=== PATIENT | male | born 1995 | race Caucasian/White ===

== ENCOUNTER 2020-04-29 10:57 | Emergency (ER) | payer OTHER ==
[2020-04-29] MEDS ORDERED: Diphtheria,Pertussis(Acell),Tetanus Vaccine 0.5 ML Syringe IM ONE (11:16)
[2020-04-29] MEDS ORDERED: Lidocaine 1% 20 ML MDV INJECT ONE (11:25)
[2020-04-29] MEDS ORDERED: Bacitracin/Neomycin/Polymyxin B Oint 0.9 GM U/D Packet TOP ONE (11:48)
[2020-04-29] MEDS ORDERED: cefTRIAXone 2 GM Vial IVPUSH ONE (11:49)
--- NOTE | 2020-04-29 11:51 | EDM.PDOC ---
ED HPI GENERAL MEDICAL PROBLEM - General Chief Complaint: General Stated Complaint: L) melchor laceration Time Seen by Provider: 04/29/20 11:05 Source of Information: Reports: Patient History Limitations: Reports: No Limitations - History of Present Illness INITIAL COMMENTS - FREE TEXT/NARRATIVE: Patient to the emergency department where he advises he was loading a boat last night and sustained a laceration to the left lower leg from the boat trailer. The patient vies initially he did not notice that he had this injury until he was going home. The patient denies any numbness or tingling denies any other symptoms his tetanus shot is not up-to-date and this will be updated in the emergency department Duration: Day(s): (Last night) Location: Reports: Lower Extremity, Left Quality: Reports: Ache Severity: Mild Improves with: Reports: None Worsens with: Reports: None Context: Reports: Other (Cut on a boat trailer) Associated Symptoms: Reports: No Other Symptoms. 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) Left Leg Pain Score (Numeric/FACES): 4 - Related Data Allergies Allergy/AdvReac Type Severity Reaction Status Date / Time clarithromycin [From Biaxin] Allergy Rash Verified 04/24/18 17:08 Home Meds: Home Meds cephALEXin [Keflex] 500 mg PO QID 10 Days #40 cap 04/29/20 [Rx] Past Medical History HEENT History: Reports: None - Past Surgical History HEENT Surgical History: Reports: Tonsillectomy Social & Family History - Family History Family Medical History: Noncontributory - Tobacco Use Smoking Status *Q: Never Smoker Second Hand Smoke Exposure: No - Caffeine Use Caffeine Use: Reports: None - Recreational Drug Use Recreational Drug Use: No ED ROS GENERAL - Review of Systems Review Of Systems: See Below Constitutional: Reports: No Symptoms. Denies: Fever HEENT: Reports: No Symptoms Respiratory: Reports: No Symptoms Cardiovascular: Reports: No Symptoms GI/Abdominal: Reports: No Symptoms. Denies: Nausea, Vomiting Musculoskeletal: Denies: Neck Pain, Back Pain, Joint Pain, Muscle Pain Skin: Reports: Wound Neurological: Reports: No Symptoms. Denies: Numbness, Tingling, Weakness Psychiatric: Reports: No Symptoms ED EXAM, GENERAL - Physical Exam Exam: See Below Exam Limited By: No Limitations General Appearance: Alert, WD/WN, No Apparent Distress Ears: Normal External Exam Nose: Normal Inspection Throat/Mouth: Normal Inspection, Normal Oropharynx, Normal Voice, No Airway Compromise Head: Atraumatic, Normocephalic Neck: Normal Inspection, Supple, Non-Tender, Full Range of Motion Respiratory/Chest: No Respiratory Distress, Lungs Clear, Normal Breath Sounds, Chest Non-Tender Cardiovascular: Normal Peripheral Pulses, Regular Rate, Rhythm, No Murmur GI/Abdominal: Soft Back Exam: Normal Inspection, Full Range of Motion Extremities: Normal Range of Motion, Normal Capillary Refill. No: Non-Tender Neurological: Alert, Oriented, Normal Cognition, Normal Gait, No Motor/Sensory Deficits Psychiatric: Normal Affect, Normal Mood Skin Exam: Warm, Dry, No Rash, Other (3cm laceration to the right lower extremity just above the ankle area). No: Intact ED GENERAL MEDICAL PROCEDURES - Laceration/Wound Repair Left Lower Anterior Leg Lac/wound length in cm: 3 Appearance: Subcutaneous Distal NVT: Neuro & Vascular Intact Anesthetic Type: Local Local Anesthesia - Lidocaine (Xylocaine): 1% Plain Local Anesthetic Volume: Other (7) Skin Prep: Saline, Sterile Drape Exploration/Debridement/Repair: Wound Explored, In a Bloodless Field, Explored to Base, Extensive Debridement Closed with: Sutures Suture Size: 4-0 # of Sutures: 3 Suture Type: Nylon Suture Size: 4-0 # of Sutures: 2 Repaired with: Vicryl Complication Description: none Progress/Comments: The patient was advised the risk and benefits of closing this wound as the injury happened yesterday, however, as the wound is large and gaping I advised him that the wound needs to be extensively cleaned and irrigated and then loosely approximated. I did advise despite the best wound care and cleaning that is been done the risk of infection is still significant. I would also advised him that he will be given medication which is an antibiotic to help prevent this from happening as well as he will be placed on a prescription of antibiotics for 10 days. He agrees with treatment plan. The wound was cleaned and irrigated with normal saline to bloodless field no foreign body. Course - Vital Signs Text/Narrative:: The patient was evaluated emergency department the wound was closed see the closure note for details. The patient's tetanus shot was updated and the patient was given Rocephin 2 g IV. It was again stressed the need to closely monitor this wound as it has significant risk of infection despite the best cleaning and treatment plan the patient understands and agrees to monitor closely. He is to follow-up in 2 days for recheck and he was advised sutures can probably come out in 10 to 14 days. He was also cautioned on taking care of the wound as this part of the body is a stress part of that can cause the sutures to break. He verbalized understanding. The patient's blood pressure is elevated and his vital signs were really taken see the results for details. The patient is also advised follow-up with his PCP for further evaluation and treatment Last Recorded V/S: Last Vital Signs Temp 36.1 C 04/29/20 11:07 Pulse 124 H 04/29/20 11:07 Resp 18 04/29/20 11:07 BP 164/63 H 04/29/20 11:07 Pulse Ox 98 04/29/20 11:07 - Orders/Labs/Meds Orders: Active Orders 24 hr Category Date Time Status Vaccines to be Administered [RC] PER UNIT ROUTINE Care 04/29/20 11:17 Active Meds: Medications Discontinued Medications Generic Name Dose Route Start Last Admin Trade Name Freq PRN Reason Stop Dose Admin Ceftriaxone Sodium 2 gm 04/29/20 11:49 04/29/20 11:56 Rocephin IVPUSH 04/29/20 11:50 2 gm ONETIME ONE Administration Diphtheria/Tetanus/Acell Pertussis 0.5 ml 04/29/20 11:16 04/29/20 11:20 Adacel IM 04/29/20 11:17 0.5 ml .ONCE ONE Administration Lidocaine HCl 20 ml 04/29/20 11:25 04/29/20 11:28 Xylocaine 1% INJECT 04/29/20 11:26 20 ml ONETIME ONE Administration Neomycin/Polymyxin/Bacitracin 1 each 04/29/20 11:48 04/29/20 11:56 Triple Antibiotic Oint TOP 04/29/20 11:49 1 each ONETIME ONE Administration Departure - Departure Time of Disposition: 11:49 Disposition: Home, Self-Care 01 Condition: Good Clinical Impression: Laceration of left lower leg - Discharge Information *PRESCRIPTION DRUG MONITORING PROGRAM REVIEWED*: Not Applicable *COPY OF PRESCRIPTION DRUG MONITORING REPORT IN PATIENT GERONIMO: Not Applicable Prescriptions: cephALEXin [Keflex] 500 mg PO QID 10 Days #40 cap Instructions: Laceration Care, Adult, [id number], Sutures, Reese, or Adhesive Wound Closure, [id number] Referrals: Alli Rodrigez PA-C [Primary Care Provider] - Forms: ED Department Discharge Additional Instructions: Keep the wound clean and dry Apply thin coating Neosporin 3 times a day Recheck the wound in 2 days with your family doctor Return to the emergency department sooner if worse or any problems Alternate Tylenol and or Motrin as needed for any pain Sepsis Event Note (ED) - Evaluation Sepsis Screening Result: No Definite Risk - Focused Exam Vital Signs: Vital Signs Temp Pulse Resp BP Pulse Ox 04/29/20 11:07 36.1 C 124 H 18 164/63 H 98 - Problem List & Annotations (1) Laceration of left lower leg SNOMED Code(s): 36761193315967098 Code(s): S81.812A - LACERATION WITHOUT FOREIGN BODY, LEFT LOWER LEG, INIT ENCNTR Status: Acute Priority: Medium Current Visit: Yes Qualifiers: Encounter type: initial encounter Qualified Code(s): S81.812A - Laceration without foreign body, left lower leg, initial encounter - Problem List Review Problem List Initiated/Reviewed/Updated: Yes - My Orders Last 24 Hours: My Active Orders 04/29/20 11:17 Vaccines to be Administered [RC] PER UNIT ROUTINE - Assessment/Plan Last 24 Hours: My Active Orders 04/29/20 11:17 Vaccines to be Administered [RC] PER UNIT ROUTINE Plan: The patient's past medical history, past surgical history, social history and past family history was reviewed see the nursing notes for details
== END 2020-04-29 12:18 | disposition home or self-care (01) ==
LOC: CC.ED 10:57
DX: S81.812A Laceration without foreign body, left lower leg, initial encounter (principal); Z88.1 Allergy status to other antibiotic agents; Z23 Encounter for immunization; W26.9XXA Contact with unspecified sharp object(s), initial encounter
CPT/HCPCS: 12032; 90471; 90715; 96374; 99282; J0696; J2001